=== PATIENT | male | born 1960 | race Caucasian/White ===

== ENCOUNTER 2024-01-17 12:04 | Emergency (ER) | payer OTHER ==
[~2024-01-17] VITALS: Ht 162.6 cm; Wt 95.3 kg
[2024-01-17] MEDS ORDERED: CRESTOR40 MG PO (12:47)
[2024-01-17] MEDS ORDERED: ALDACTONE25 MG PO (12:47)
[2024-01-17] MEDS ORDERED: JANTOVEN5 MG PO (12:47)
[2024-01-17] MEDS ORDERED: COZAAR100 MG PO (12:48)
[2024-01-17] MEDS ORDERED: CARVEDILOL ER40 MG PO (12:48)
[2024-01-17] MEDS ORDERED: 0.9 % SODIUM CHLORIDE 1,000 ML IV ONE (14:15)
[2024-01-17 15:29] LABS: HEMATOCRIT 36.8 % (39.0-48.0); HEMOGLOBIN 12.2 g/dL (13-16.00); MEAN CELL VOLUME 76.3 fL (80.0-100.00); MEAN CORPUSCULAR HEMOGLOBIN 25.2 pg (27.00-32.0); PLATELET COUNT 229 K/uL (150-450); RED BLOOD COUNT 4.83 M/uL (4.00-6.00); RED CELL DISTRIBUTION WIDTH 15.1 % (11.5-14.5)
[2024-01-17 15:48] LABS: INR 1.15; PARTIAL THROMBOPLASTIN TIME 37.6 SECONDS (22.0-34.0); PROTHROMBIN TIME 12.4 SECONDS (9.0-11.5)
[2024-01-17 15:57] LABS: ALBUMIN 4.3 gm/dL (3.4-5.0); BILIRUBIN TOTAL 1.05 mg/dL (0.3-1.2); CALCIUM 10.8 mg/dL (8.5-10.1); CREATININE SERUM 0.84 mg/dL (0.70-1.30); GFR 92.59; GLOBULINA 4.3 G/DL (2.4-3.5); POTASSIUM 4.14 mEq/L (3.5-5.1); TOTAL PROTEIN 8.6 gm/dL (6.4-8.2)
== END 2024-01-17 22:48 | disposition home or self-care (01) ==
LOC: ER 12:06
PROVIDERS: General Practice
DX: K08.409 Partial loss of teeth, unspecified cause, unspecified class (principal); K06.8 Other specified disorders of gingiva and edentulous alveolar ridge; Z20.822 Contact with and (suspected) exposure to COVID-19; I10 Essential (primary) hypertension; Z88.0 Allergy status to penicillin
CPT/HCPCS: 36415; 93005; 96365; 96366; 99282; J7030